=== PATIENT | female | born 1960 | race Caucasian/White ===

== ENCOUNTER 2017-07-25 06:35 | Inpatient (IN) ==
--- NOTE | 2017-07-24 22:06 | Discharge Summary ---
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 (3) HTN (hypertension) Priority: Secondary Status: Acute Qualifiers: Hypertension type: essential hypertension Qualified Code(s): I10 - Essential (primary) hypertension (4) BUDDY (obstructive sleep apnea) Priority: Secondary Status: Acute (5) Obesity Priority: Secondary Status: Chronic Qualifiers: Obesity type: unspecified obesity type Obesity classification: unspecified obesity classification Serious obesity comorbidity presence: unspecified whether serious comorbidity present Qualified Code(s): E66.9 - Obesity, unspecified; Z68.41 - Body mass index (BMI) 40.0-44.9, adult; Z68.41 - Body mass index (BMI) 40.0-44.9, adult; Z68.41 - Body mass index (BMI) 40.0-44.9, adult; Z68.41 - Body mass index (BMI) 40.0-44.9, adult - Discharge Medications Home Medications: OxyCODONE Immed Rel [Roxicodone 5 MG] 5 mg PO Q6HR PRN #28 tablet 07/24/17 [Rx] BuPROPion XL (24 HR) [Wellbutrin Xl] 150 mg PO DAILY 07/25/17 [History] Escitalopram [Lexapro] 20 mg PO DAILY 07/25/17 [History] Fish Oil/Dha/Epa [Fish Oil 1,200 mg Fish Oil] 1 tab PO DAILY 07/25/17 [History] Gabapentin [Neurontin] 600 mg PO HS 07/25/17 [History] Losartan Potassium [Cozaar] 100 mg PO DAILY 07/25/17 [History] Mv-Mn/FA/Vit K/Lycop/Lut/Coq10 [Daily Multivitamin Capsule] 1 tab PO DAILY 07/25 [History] Oxybutynin [Ditropan] 5 mg PO BID 07/25/17 [History] Spironolactone [Aldactone] 25 mg PO DAILY 07/25/17 [History] Zolpidem [Ambien] 10 mg PO HS PRN 07/25/17 [History] Allergies/Adverse Reactions: 3 Allergy/AdvReac Type Severity Reaction Status Date / Time Medroxyprogesterone Allergy See Verified 07/13/17 14:08 [From Provera] Comments Primary care physician: PCP NONE - Patient Status Disposition: Home, Self-Care Condition: Good - Discharge Instructions Follow Up With: NONE,PCP [Primary Care Provider] - - Hospital Course Hospital course: Ms. Herrera is a 57 year old female - Time Spent with Patient Total time spent providing and/or coordinating discharge services: <Eduard Varma - Last Filed: 07/26/17 06:35> Date of Encounter: 07/26/17 Time of Encounter: 06:34 - Discharge Diagnosis (1) HTN (hypertension) Priority: Secondary Status: Chronic Qualifiers: Hypertension type: essential hypertension Qualified Code(s): I10 - Essential (primary) hypertension (2) BUDDY (obstructive sleep apnea) Priority: Secondary Status: Chronic (3) Obesity Priority: Secondary Status: Chronic Qualifiers: Obesity type: unspecified obesity type Obesity classification: adult class 3 (BMI >= 40) Serious obesity comorbidity presence: unspecified whether serious comorbidity present Body mass index: BMI 40.0-44.9 Qualified Code(s) : E66.9 - Obesity, unspecified; Z68.41 - Body mass index (BMI) 40.0-44.9, adult ; Z68.41 - Body mass index (BMI) 40.0-44.9, adult; Z68.41 - Body mass index (BMI ) 40.0-44.9, adult; Z68.41 - Body mass index (BMI) 40.0-44.9, adult (4) 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 Herrera is a 57 year old female Status post revision right total shoulder The patient had an uneventful postoperative course. They received antibiotics and physical therapy and were discharged in stable condition. There will follow -up in the office in 2 weeks. - Time Spent with Patient Total time spent providing and/or coordinating discharge services:
--- NOTE | 2017-07-25 06:43 | History & Physical Report ---
Date of Encounter: 07/25/17 Time of Encounter: 06:42 24 Hour HP Update - Instructions Instructions: If the History and Physical is less than 30 days old and was completed prior to A.M. admission and or procedure and has NOT been updated on calendar day of procedure please complete this update prior to performing procedure. - Update Patient reports changes in Medical Condition: No Changes in examination, assessment, or condition: No Changes in Medication: No Preop tests/diagnostics Reviewed: Yes Surgery Remains Indicated: Yes Consent for Planned Operative Procedure(s) Verified: Yes - Pre-Operative Checklist Preoperative Checklist Indicated: No Prophylactic Antibiotic Ordered: Yes Is VTE Prophylaxis Indicated?: Yes
[2017-07-25] MEDS ORDERED: Lidocaine -MPF 4% 5 ML AMPUL ONE (06:57)
[2017-07-25] MEDS ORDERED: Ondansetron 4 MG/2 ML VIAL ONE (07:05)
[2017-07-25] MEDS ORDERED: *HR* Propofol 200 MG/20 ML VIAL IVP ONE (07:05)
[2017-07-25] MEDS ORDERED: *HR* Succinylcholine 200 MG/10 ML VIAL IVP ONE (07:05)
[2017-07-25] MEDS ORDERED: Lidocaine -MPF 2% 2 ML VIAL ONE (07:05)
[2017-07-25] MEDS ORDERED: Dexamethasone 4 MG/ML VIAL ONE ×2 (07:05→08:02)
[2017-07-25] MEDS ORDERED: *HR* FentaNYL (PF) 100 MCG/2 ML VIAL ONE ×2 (07:05→08:28)
[2017-07-25] MEDS ORDERED: *HR* Midazolam HCl 2 MG/2 ML VIAL ONE (07:05)
--- NOTE | 2017-07-25 07:16 | Anesthesia Evaluation PreOp ---
Date of Encounter: 07/25/17 Time of Encounter: 07:14 - Past History Planned Operation: Right total shoulder replacement Cardiac History: HTN Pulmonary History: BUDDY Dx [employer]ILRO[employer] SUR[employer]YOR History: Other (depression) Other Medical History: Other (BMI 43) Anesthesia History: No Prior Anesthetic Complications Medications and Allergies OxyCODONE Immed Rel [Roxicodone 5 MG] 5 mg PO Q6HR PRN #28 tablet 07/24/17 [Rx] 3 Allergy/AdvReac Type Severity Reaction Status Date / Time Medroxyprogesterone Allergy See Verified 07/13/17 14:08 [From Provera] Comments - Meds/Allergy Pre-op Review Medications Reviewed: Yes Allergies Reviewed: Yes Beta Blockers on Current Med List: No Anesthesia Results - Labs Laboratory Tests 07/13/17 07/13/17 07/13/17 14:28 14:28 14:28 WBC 6.1 Hgb 14.0 Hct 43.9 Plt Count 341 PT 10.9 INR 1.0 APTT 32.0 Sodium 140 Potassium 3.8 Chloride 106 Carbon Dioxide 25 BUN 10 Creatinine 0.83 Est GFR ( Amer) > 60 Est GFR (Non-Af Amer) > 60 BUN/Creatinine Ratio 12 Est Mean Plasma Glucose Hemoglobin A1c 07/13/17 14:28 WBC Hgb Hct Plt Count PT INR APTT Sodium Potassium Chloride Carbon Dioxide BUN Creatinine Est GFR ( Amer) Est GFR (Non-Af Amer) BUN/Creatinine Ratio Est Mean Plasma Glucose 111 Hemoglobin A1c 5.5 - Imaging EKG: report reviewed, image reviewed (SINUS BRADYCARDIA LOW QRS VOLTAGE IN PRECORDIAL LEADS PATTERN CONSISTENT WITH PULMONARY DISEASE) Anesthesia Exam Last Vital Signs Temp 98.8 F 07/25/17 07:08 Pulse 63 07/25/17 07:08 Resp 18 07/25/17 07:08 BP 103/65 07/25/17 07:08 Pulse Ox 93 07/25/17 07:08 Weight: 111 kg NPO (# of Hours): > 8 hrs - HEENT Pupil (Motor): Pupils equal, EOMI Mallampati: II Teeth: Normal Oral Opening: Greater than 3 - [employer]ILRO[employer] SUR[employer]YOR LOC: Oriented [employer]IL[employer] SUR[employer]YOR Motor: Normal RUE, Normal LUE, Normal RLE, Normal LLE, Normal Face - Cardiac Rhythm: Regular Murmur: None - Pulmonary Breath Sounds: bilateral Clear Respiratory Effort: Symmetrical Anesthesia Assess/Plan ASA Score: 3 Modified [place] Scale for Level of Consciousness: Cooperative, oriented, and tranquil Anesthetic Plan: General, Regional Monitoring Plan: Standard Monitors Recovery Plan: PACU
[2017-07-25] MEDS ORDERED: Vancomycin 1,750 MG in D5% in Water 500 ML IVPB ONE (07:19)
[2017-07-25] MEDS ORDERED: Lidocaine -MPF 1% 2 ML VIAL ID ONE (07:19)
[2017-07-25] MEDS ORDERED: Plasma-Lyte A (PH 7.4) 1,000 ML IVC SCH (07:30)
[2017-07-25] MEDS ORDERED: ROPIVACAINE HCL/PF 0.5% 30 ML VIAL ONE (07:42)
[2017-07-25] MEDS ORDERED: Bupivacaine/Clonidine Syringe 1 EACH SYRINGE ONE (07:43)
[2017-07-25] MEDS ORDERED: Ethanol\\Acetic Acid\\Na Ace\\Ben 1,000 ML IRRIG.SOLN IR ONE (08:03)
[2017-07-25] MEDS ORDERED: *HR* Labetalol 20 MG/4 ML SYRINGE IVP PRN (08:26)
[2017-07-25] MEDS ORDERED: *HR* Morphine 2 MG/ML SYRINGE IVP PRN (08:26)
[2017-07-25] MEDS ORDERED: Ondansetron 4 MG/2 ML VIAL IVP ONE (08:26)
[2017-07-25] MEDS ORDERED: Dexamethasone 4 MG/ML VIAL IVP ONE (08:26)
[2017-07-25] MEDS ORDERED: *HR* Promethazine 25 MG/ML VIAL IVP PRN (08:26)
--- NOTE | 2017-07-25 08:26 | Anesthesia Procedures ---
Date of Encounter: 07/25/17 Time of Encounter: 08:10 Procedures: Anesthesia - Nerve Block Procedure Date: 07/25/17 Time: 08:10 Allergies/Adv Reactions: provera Surgical Procedure: Right TSR Checklist: Correct Patient Identifier, Correct procedure, History checked Correct side: Right Blood Thinner: No Monitor Applied: EKG, BP, Pulse Oximetry Supplemental Oxygen via Nasal Cannula (L/min): 2 Sedation: Versed (mg): 2 Sedation: Fentanyl (mcg): 100 Indication: Post Op Analgesia (per dr. martinez) Pre-op Neuro Deficits: No Block Type: Supraclavicular, Other (scp, icb) Catheter placed: No Sterile Technique: Yes Ultrasound used: Yes Anatomy identified: Yes Visual spread of Local: Yes Blood on Needle Aspiration: No Smooth Injection of Local: Yes Pain with Injection of Local: No Prep: Chlorhexadine Needle: 22 x 50 mm Stimuplex Local: 0.25% Bupivicaine w/Clonidine 20 mcg/cc (10cc scp and 10cc icb), Ropivacaine (30cc 0.5% with mg decadron) Volume (cc): 30, 10, 10 Number of Attempts: 1 Complications: None/effective block Vitals: Vital Signs/O2 Sat/Glucose, Most Recent Temp Pulse Resp BP Pulse Ox 98.8 F 53 16 122/68 96 07/25/17 07:08 07/25/17 08:12 07/25/17 08:12 07/25/17 08:12 07/25/17 08:12 [facility]
[2017-07-25] MEDS ORDERED: *HR* Phenylephrine 10 MG/ML VIAL ONE (09:02)
--- NOTE | 2017-07-25 09:42 | Orthopedic Operative Note ---
Date of procedure: 07/25/17 Pre-op diagnosis: Aseptic loosening right humeral Post-op diagnosis: same Procedure: Procedure: Right Revision humeral component Total Shoulder replacement reverse Estimated blood loss: 200 cc Hardware: Arthrex: Metal and polyethylene replacement. Humeral stem size 7, 9 metal insert and 3 poly-insert Procedural Notes: Patient with loosening of the component glenoid component well fixed. Operative procedure: The patient was brought to the operating room and placed on the operating room table. The patient was placed in the modified beachchair position. All pressure points were padded appropriately. And the head was stabilized in the neutral position. The operative extremity was prepped and draped in the sterile surgical fashion. The patient received IV antibiotics prior to skin incision. A standard deltopectoral approach was made to the operative shoulder. Incision was made through the old incision, through the skin and subcutaneous tissue, hemo stasis was obtained with Bovie cautery. Using careful blunt dissection the deltopectoral interval was developed and the clavipectoral fascia was incised. An extensive debridement was performed, and the shoulder was dislocated easily. The humeral component was removed first by removing the metaphyseal component followed by the humeral stem. This was removed without significant difficulty. Evaluation of the glenoid revealed it to be well fixed. Decision was made to proceed with revision of the humeral component since this was what lit up on bone scan primarily. The humerus was broached and 20 degrees of anteversion to a size 7. Trial reduction found the shoulder to be relocatable. Trial components were removed, real implants were seated. Trial reduction found the shoulder to be stable with the 9 metal and 3 Dora.. The trial implants were removed the real implants were seated and secured in the shoulder was reduced. The patient had excellent motion and excellent stability no shuck. The deep tissue was irrigated with pulse irrigation deltopectoral interval was closed by the PA, with #2 PDS suture. Superficially the subcutaneous tissue was closed with 0 PDS suture, the skin was closed with Dermabond. The patient placed sterile dressing, postoperative brace extubated and transferred to the recovery room in stable condition. Anesthesia: GETA Surgeon: Eduard Varma Condition: stable Disposition: PACU
[2017-07-25 10:25] LABS: Hematocrit 40.5 % (35.3-44.9); Hemoglobin 13.1 g/dL (11.5-15.4)
--- NOTE | 2017-07-25 10:49 | Anesthesia Evaluation Post Op ---
Date of Encounter: 07/25/17 Time of Encounter: 10:47 - Vital Signs Vital Signs: Vital Signs/O2 Sat, Most Current Temp Pulse Resp BP Pulse Ox 99.8 F H 74 12 147/90 93 07/25/17 10:38 07/25/17 10:38 07/25/17 10:38 07/25/17 10:38 07/25/17 10:38 - Lungs Lungs: Clear Ascult./Percussion - Airway Airway: Non-obstructed - Cardiovascular Regular Rate - Mental Status Mental Status: Alert & Oriented, Answers Appropriately - Pain Pain Scale: 0 - Nausea Vomiting Nausea Vomiting: Not Present - Hydration Hydration: Ice chips, Has not voided Notes: 07/25/17 10:48 SPO2 93% on 4L nc. RN instructed to start CPAP on patient's home settings when arriving to the floor - Discharge PostOp Status: Transfer Patient to floor
[2017-07-25] MEDS ORDERED: *HR* OxyCODONE Immed Rel 5 MG TABLET PO PRN ×2 (10:54)
[2017-07-25] MEDS ORDERED: *HR* HYDROmorphone (PF) 1 MG/ML SYRINGE IVP PRN (10:54)
[2017-07-25] MEDS ORDERED: [UNRECOGNIZED DRUG - OTHER] PO SCH (10:54)
[2017-07-25] MEDS ORDERED: Temazepam 15 MG CAPSULE PO PRN (10:54)
[2017-07-25] MEDS ORDERED: DHA PO SCH (10:54)
[2017-07-25] MEDS ORDERED: EPA PO SCH (10:54)
[2017-07-25] MEDS ORDERED: Sennosides 8.6 MG TABLET PO PRN (10:54)
[2017-07-25] MEDS ORDERED: MOM Conc 10 ML UD.LIQ PO PRN (10:54)
[2017-07-25] MEDS ORDERED: Ondansetron 4 MG/2 ML VIAL IVP PRN (10:54)
[2017-07-25] MEDS ORDERED: FISH OIL PO SCH (10:54)
[2017-07-25] MEDS ORDERED: Naloxone 0.4 MG/ML INJ IVP PRN (10:54)
[2017-07-25] MEDS: BuPROPion XL (24 HR) 150 MG TABLET PO SCH (12:24)
[2017-07-25] MEDS: ceFAZolin 2,000 MG in D5% in Water 100 ML IVPB SCH (16:00)
[2017-07-25] MEDS: Ibuprofen 400 MG TABLET PO PRN (16:56)
[2017-07-25] MEDS ORDERED: *HR* Enoxaparin 30 MG/0.3 ML SYRINGE SQ SCH (18:00)
[2017-07-25] MEDS: Artificial Tears SOLN 15 ML BOTTLE BOTH EYES SCH ×2 (18:16→21:40)
[2017-07-25] MEDS: *HR* Enoxaparin 30 MG/0.3 ML SYRINGE SQ SCH (18:17)
[2017-07-25] MEDS: Spironolactone 25 MG TABLET PO SCH (18:17)
[2017-07-25] MEDS: Multivit/Ca/Min/Fe/FA 1 TAB TABLET PO SCH (18:17)
[2017-07-25] MEDS ORDERED: Gabapentin 300 MG CAPSULE PO SCH (21:00)
[2017-07-25] MEDS: Ringers Solution, Lactated 1,000 ML IVC SCH (21:50)
[2017-07-26] MEDS: ceFAZolin 2,000 MG in D5% in Water 100 ML IVPB SCH (00:53)
[2017-07-26] MEDS: Ringers Solution, Lactated 1,000 ML IVC SCH (00:54)
[2017-07-26 05:51] LABS: Hematocrit 34.6 % (35.3-44.9)
[2017-07-26] MEDS: *HR* Enoxaparin 30 MG/0.3 ML SYRINGE SQ SCH (05:58)
[2017-07-26 06:08] LABS: Hemoglobin 10.9 g/dL (11.5-15.4)
--- NOTE | 2017-07-26 06:36 | Orthopedics Progress Note ---
Date of Encounter: 07/26/17 Time of Encounter: 06:35 - Assessment and Plan (1) HTN (hypertension) Current Visit: No Status: Chronic Qualifiers: Hypertension type: essential hypertension Qualified Code(s): I10 - Essential (primary) hypertension (2) BUDDY (obstructive sleep apnea) Current Visit: No Status: Chronic (3) Obesity Current Visit: No Status: Chronic Qualifiers: Obesity type: unspecified obesity type Obesity classification: adult class 3 (BMI >= 40) Serious obesity comorbidity presence: unspecified whether serious comorbidity present Body mass index: BMI 40.0-44.9 Qualified Code(s) : E66.9 - Obesity, unspecified; Z68.41 - Body mass index (BMI) 40.0-44.9, adult ; Z68.41 - Body mass index (BMI) 40.0-44.9, adult; Z68.41 - Body mass index (BMI ) 40.0-44.9, adult; Z68.41 - Body mass index (BMI) 40.0-44.9, adult (4) Aseptic loosening of prosthetic joint Current Visit: No Status: Chronic (5) Status post total replacement of right shoulder Current Visit: No Status: Chronic Subjective Interval history: Patient was seen this morning doing well without complaints. Afebrile vital signs stable. Operative extremity: Neurovascularly intact Dressing clean dry and intact Calves nontender Assessment and plan: Continue with postoperative care Discharged today Objective Vital signs: Vital Signs Temp Pulse Resp BP Pulse Ox 07/26/17 03:58 97.8 F 45 14 95/62 94 07/26/17 00:33 97.8 F 52 16 91/42 93 07/26/17 00:30 17 93 07/25/17 19:30 98.3 F 53 16 97/63 93 07/25/17 15:22 97.5 F L 54 18 109/69 93 07/25/17 14:12 98.3 F 60 14 90/55 94 07/25/17 13:16 97.7 F 62 14 97/62 93 07/25/17 12:15 97.8 F 75 14 95 07/25/17 10:58 97.5 F L 75 16 114/63 94 07/25/17 10:46 99.8 F H 71 12 133/82 94 07/25/17 10:36 78 12 147/90 93 07/25/17 10:26 99.8 F H 74 12 159/99 93 07/25/17 10:16 86 12 153/94 92 07/25/17 10:06 88 12 159/104 93 07/25/17 09:56 98.7 F 98 16 151/108 95 07/25/17 08:12 53 16 122/68 96 07/25/17 07:08 98.8 F 63 18 103/65 93 Intake and Output 07/25/17 07/25/17 07/26/17 15:59 23:59 07:59 Intake Total 0 / 0 200 / 200 1000 / 1000 Output Total 200 / 200 0 / 0 700 / 700 Balance -200 / -200 200 / 200 300 / 300 Intake: IV Fluids 100 / 100 1000 / 1000 Lactated Ringers 1,000 ML @ 75 1000 / 1000 mls/hr IVC .[id number] DORIS Rx#: [id number] Ancef 2,000 MG In Dextrose 5% 100 / 100 100 ML @ 200 mls/hr IVPB Q8HR DORIS Rx#:[id number] Oral 0 / 0 100 / 100 Output: Urine 0 / 0 0 / 0 700 / 700 Estimated Blood Loss 200 / 200 Other: Meal Dinner Percent of Meal Consumed 10% # Voids 1 1 Weight 111.38 kg Patient Weight 07/26/17 23:59 Weight 111.38 kg - Labs CBC & BMP: 07/26/17 04:55 Labs: Abnormal lab results Hgb 10.9 g/dL (11.5-15.4) L D 07/26/17 04:55 Hct 34.6 % (35.3-44.9) L 07/26/17 04:55 - VTE Documentation of Mechanical Device: Venous foot pump, device Consult Discharge Plan - Plan Referrals: NONE,PCP [Primary Care Provider] -
[2017-07-26] MEDS: BuPROPion XL (24 HR) 150 MG TABLET PO SCH (08:04)
[2017-07-26] MEDS: Spironolactone 25 MG TABLET PO SCH (08:04)
[2017-07-26] MEDS: Artificial Tears SOLN 15 ML BOTTLE BOTH EYES SCH (08:04)
[2017-07-26] MEDS: Multivit/Ca/Min/Fe/FA 1 TAB TABLET PO SCH (08:04)
[2017-07-26] MEDS ORDERED: FLUARIX QUAD 2017-18 36MOS UP/PF 0.5 ML SYRINGE IM ONE (08:41)
[2017-07-26] MEDS ORDERED: NON-FORMULARY MEDICATION 1 EACH EACH PO SCH (09:00)
[2017-07-26] MEDS: Ibuprofen 400 MG TABLET PO PRN (10:01)
[2017-07-26 11:09] VITALS: BP 98/60
== END 2017-07-26 12:05 | disposition home or self-care (01) | DRG 483 ==
LOC: SAMDAY 06:35 → 3NENU 10:50
PROVIDERS: ADMIT Orthopaedic Surgery; ATTEND Orthopaedic Surgery

== ENCOUNTER 2019-05-30 12:10 | Inpatient (IN) ==
[2019-05-30] MEDS ORDERED: Ethanol\\Acetic Acid\\Na Ace\\Ben 1,000 ML IRRIG.SOLN IR ONE (12:34)
[2019-05-30] MEDS ORDERED: Ropivacaine/PF 0.5% 30 ML VIAL ONE (12:38)
[2019-05-30] MEDS ORDERED: *HR* Midazolam HCl 2 MG/2 ML VIAL ONE (12:38)
[2019-05-30] MEDS ORDERED: ROPIVACAINE/PF/NS 0.25% 1 EACH SYRINGE INTRAART ONE (12:38)
[2019-05-30] MEDS ORDERED: *HR* FentaNYL (PF) 100 MCG/2 ML VIAL ONE (12:38)
[2019-05-30] MEDS ORDERED: *HR* OxyCODONE Immed Rel 5 MG TABLET PO PRN ×3 (12:45→18:05)
[2019-05-30] MEDS ORDERED: Acetaminophen IV 1,000 MG/100 ML INFUS..BTL IVPB ONE (12:45)
[2019-05-30] MEDS ORDERED: Albuterol 2.5 MG/3 ML NEBULIZER IH ONE (12:49)
[2019-05-30] MEDS ORDERED: CeFAZolin Syr 2,000MG/20 ML 2,000 MG/20 ML SYRINGE IVPB ONE (12:49)
[2019-05-30] MEDS ORDERED: Ringers Solution, Lactated 1,000 ML IVC SCH ×2 (13:00→18:05)
[2019-05-30] MEDS ORDERED: Dexamethasone 4 MG/ML VIAL ONE (13:36)
[2019-05-30] MEDS ORDERED: *HR* Succinylcholine 200 MG/10 ML VIAL IVP ONE (13:36)
[2019-05-30] MEDS ORDERED: Lidocaine -MPF 2% 2 ML VIAL ONE (13:36)
[2019-05-30] MEDS ORDERED: *HR* Propofol 200 MG/20 ML VIAL IVP ONE (13:36)
[2019-05-30] MEDS ORDERED: Lidocaine HCL 4 ML Topical Solution (Laryng-O-Jet Kit Sterile Pak) TP ONE (13:36)
[2019-05-30] MEDS ORDERED: Ondansetron 4 MG/2 ML VIAL ONE (13:36)
[2019-05-30] MEDS ORDERED: *HR* PHENYLEPHRINE 1,000 MCG/10 ML SYRINGE IVP ONE ×2 (13:54→14:16)
[2019-05-30] MEDS ORDERED: EPHEDrine 50 MG/ML VIAL ONE (14:21)
[2019-05-30 15:53] LABS: Hematocrit 43.2 % (35.3-44.9); Hemoglobin 13.6 g/dL (11.5-15.4)
[2019-05-30 17:22] VITALS: BP 112/66
[2019-05-30] MEDS ORDERED: *HR* Enoxaparin 30 MG/0.3 ML SYRINGE SQ SCH ×2 (18:00→20:00)
[2019-05-30] MEDS ORDERED: *HR* OxyCODONE/APAP 5/325 TABLET PO PRN (18:05)
[2019-05-30] MEDS ORDERED: Ondansetron 4 MG/2 ML VIAL IVP PRN (18:05)
[2019-05-30] MEDS ORDERED: Temazepam 15 MG CAPSULE PO PRN (18:05)
[2019-05-30] MEDS ORDERED: Sennosides 8.6 MG TABLET PO PRN (18:05)
[2019-05-30] MEDS ORDERED: Naloxone 0.4 MG/ML INJ IVP PRN (18:05)
[2019-05-30] MEDS ORDERED: MOM Conc 10 ML UD.LIQ PO PRN (18:05)
[2019-05-31] MEDS ORDERED: NON-FORMULARY MEDICATION 1 EACH EACH (Omega-3/Dha/Epa/Fish Oil [Fish Oil 1,000 Mg Softgel] PO SCH (09:00)
[2019-05-31] MEDS ORDERED: Spironolactone 25 MG TABLET PO SCH (09:00)
[2019-05-31] MEDS ORDERED: BuPROPion XL (24 HR) 150 MG TABLET PO SCH (09:00)
[2019-05-31] MEDS ORDERED: Multivit/Ca/Min/Fe/FA 1 TAB TABLET PO SCH (09:00)
== END 2019-05-30 20:57 | disposition home or self-care (01) | DRG 483 ==
LOC: SAMDAY 12:10 → 3NENU 18:16
PROVIDERS: ADMIT Orthopaedic Surgery; ATTEND Orthopaedic Surgery